=== PATIENT | male | born 1960 | race Caucasian/White ===

== ENCOUNTER → 2022-01-30 | Outpatient (CLI) | payer BC | LOC: COL.RAD 11:24 | DX: J44.9 Chronic obstructive pulmonary disease, unspecified (principal); I50.9 Heart failure, unspecified | CPT/HCPCS: Q9967 ==

== ENCOUNTER → 2022-03-29 | Outpatient (CLI) | payer BC | LOC: COL.RAD 11:28 | DX: R94.5 Abnormal results of liver function studies (principal); F10.20 Alcohol dependence, uncomplicated ==

== ENCOUNTER → 2022-06-29 | Outpatient (CLI) | payer BC | LOC: COL.RAD 09:19 | DX: E87.1 Hypo-osmolality and hyponatremia (principal); R16.1 Splenomegaly, not elsewhere classified ==

== ENCOUNTER 2022-12-07 09:55 | Day surgery (SDC) | payer BC ==
[~2022-12-07] VITALS: Ht 182.9 cm; Wt 92.5 kg
[2022-12-07] MEDS ORDERED: COZAAR100 MG PO (10:23)
[2022-12-07] MEDS ORDERED: TRELEGY ELLIPT1 EACH IH (10:24)
[2022-12-07] MEDS ORDERED: ASPIRIN 81M81 MG/TA2 PO (10:24)
[2022-12-07] MEDS ORDERED: LIPITOR 80MG80 MG PO (10:24)
[2022-12-07] MEDS ORDERED: CARDENE 20MG CA20 M1 PO (10:25)
[2022-12-07] MEDS ORDERED: PROAIR HFA0.09 MG/AC IH (10:25)
[2022-12-07 10:32] VITALS: BP 124/77; PULSE 92; TEMP 97.8
[2022-12-07 12:25] VITALS: BP 105/59; PULSE 55; TEMP 97.8
--- NOTE | 2022-12-07 12:25 | NUR ---
1225 PATIENT RETURNS TO ROOM 8 VIA CART. PATIENT IS ALERT AND ORIENTED. PATIENT AMBULATES TO RECLINER WITH THE ASSISTANCE OF 2 NURSES. RESPIRATIONS EVEN AND UNLABORED. VITAL SIGNS OBTAINED. PATIENT REQUESTED A PEPSI. NO DIFFICULTIES SWALLOWING. 1245 THIS NURSE DISCUSSED DISCHARGE INSTRUCTIONS WITH PATIENT. PATIENT VERBALIZED UNDERSTANDING WITH NO FURTHER QUESTIONS. 1250 DISCONTINUED IV FROM RIGHT HAND WITH NO COMPLICATIONS. 1305 DOCTOR IN TO SPEAK WITH PATIENT. 1313 PATIENT DUSCHARGES FROM UNIT VIA WHEELCHAIR IN STABLE CONDITION TO PRIVATE CAR.
[2022-12-07 12:40] VITALS: BP 108/72; PULSE 66
[2022-12-07 12:55] VITALS: BP 119/67; PULSE 56
== END 2022-12-07 13:13 | disposition home or self-care (01) ==
LOC: SDCO 09:55
DX: K52.9 Noninfective gastroenteritis and colitis, unspecified (principal); D72.822 Plasmacytosis; K63.89 Other specified diseases of intestine; R19.5 Other fecal abnormalities; Z87.891 Personal history of nicotine dependence
CPT/HCPCS: J2704; J7120

== ENCOUNTER → 2024-01-09 | Outpatient (CLI) | payer MEDICARE ==
[~2024-01-09] MED LIST: ASPIRIN 81M81 MG/TA2 PO; CARDENE 20MG CA20 M1 PO; COZAAR100 MG PO; LIPITOR 80MG80 MG PO; PROAIR HFA0.09 MG/AC IH; TRELEGY ELLIPT1 EACH IH
== END ==
LOC: COL.RAD 06:52
DX: Z12.2 Encounter for screening for malignant neoplasm of respiratory organs (principal); Z87.891 Personal history of nicotine dependence